=== PATIENT | male | born 1980 | race Caucasian/White ===

== ENCOUNTER 2020-12-13 18:43 | Observation (INO) | payer BC, SELFPAY ==
--- NOTE | ~2020-12-13 | CT_ITS ---
EXAMINATION: CT abdomen pelvis w con DATE: 12/13/2020 22:23 INDICATION: Abdominal pain. Nausea. TECHNIQUE: Computed tomography (CT) of the abdomen and pelvis was performed with 100 mL Omnipaque 350 intravenous contrast. Automated exposure control and iterative reconstruction technique were employe d. The dose-length product was 414.39 mGy-cm. COMPARISON: CT abdomen and pelvis 10/08/2018 FINDINGS: The visualized portions of the lung bases demonstrate mild atelectasis. No pleural effusion . The heart size is normal. No pericardial effusion. The liver, gallbladder, spleen, pancreas, adrena l glands, and kidneys are normal. There is liquid stool in colon suggestive of diarrhea. There are ch anges of ileocolic resection and anastomosis. There is extensive wall thickening of small bowel with a distal predominance. The bowel is normal in caliber. There are supraumbilical and infraumbilical ve ntral hernias containing fat. There are changes of infraumbilical ventral hernia repair centered to t he right of midline. There is a small volume of ascites. There is mild mesenteric lymphadenopathy. Th ere is mild lumbar spondylosis. IMPRESSION: 1. Worsened widespread small bowel wall thickening with a distal predominance, consistent with Crohn disease. 2. Small volume of ascites. 3. Ventral hernias containing fat. 4. Chronic mesenteric lymphadenopathy, likely reactive. Reviewed, dictated and finalized at location A. SIONAL BABYSITTER
--- NOTE | ~2020-12-13 | XR_ITS ---
UGI-AIR CONTRAST/SMALL BOWEL INDICATION: Abdominal pain. Crohn's disease. TECHNIQUE: Serial images of the upper GI tract structures and small bowel are performed following ora l administration of barium using double contrast technique. COMPARISON: CT dated 12/13/2020 FINDINGS: Barium flowed readily through the esophagus without evidence of hernia or reflux. Gastric contour, mucosa and motility are normal. The duodenal bulb fills and empties regularly and has a nor mal mucosal pattern. The duodenal sweep is in normal position. There are multiple segments of mid an d distal small bowel with mucosal thickening and irregularity and multiple areas of small bowel narro wing, consistent with Crohn's disease. No definite fistula is identified. Transit to the colon is les s than 1 hour 20 minutes. There are changes of ileocolic resection with anastomosis. IMPRESSION: 1: Multiple segments of abnormal mucosal thickening and irregularity with segmental narrowing of the mid and distal small bowel to the level of the ileocolic anastomosis. Findings compatible with known Crohn's disease. No definite obstruction or fistula identified. Reviewed, dictated and finalized at location A. THCARE ASSOCIATE IMPRESSION: 1: Multiple segments of abnormal mucosal thickening and irregularity with segme ntal narrowing of the mid and distal small bowel to the level of the ileocolic anastomosis. Findings compatible with known Crohn's disease. No definite obstru ction or fistula identified.
[2020-12-13 18:52] VITALS: BP 116/82; PULSE 120; RESP 14; TEMP 36.4; O2SAT 98
[2020-12-13 19:05] LABS: Basophils Absolute Auto 0.1 K/mm3 (0.0-0.1); Basophils Percent Auto 0.5 % (0.2-1.2); Eosinophils Absolute Auto 0.4 K/mm3 (0-0.3); Eosinophils Percent Auto 3.1 % (0-4.4); Hematocrit 48.9 % (42.0-52.0); Hemoglobin 16.8 g/dL (14.0-18.0); Immature Granulocyte Absolute 0.05 K/mm3 (0.00-0.031); Immature Granulocyte Percent A 0.4 % (0-0.5); Lymphocytes Percent Auto 23.9 % (18.3-44.2); Mean Corpuscular HGB Conc 34.4 g/dl (32-36); Mean Corpuscular Hemoglobin 29.9 pg (26-34); Mean Platelet Volume 9.2 fl (7.4-10.4); Monocytes Absolute Auto 1.2 K/mm3 (0.1-0.6); Monocytes Percent Auto 9.1 % (2.6-8.5); Neutrophils Absolute Auto 8.2 K/mm3 (1.3-6.7); Platelet Count Result 404 k/mm3 (150-375); Red Blood Count 5.62 M/mm3 (4.6-6.20); Red Cell Distribution Width 13.9 % (11.5-14.5)
[2020-12-13 19:14] LABS: Alanine Aminotransferase 33 U/L (4-50); Albumin Level 4.2 g/dL (3.5-5.1); Alkaline Phosphatase 102 U/L (38-126); Anion Gap 9 mmol/L (8-16); Aspartate Amino Transferase 24 U/L (17-59); Bilirubin,Total 0.5 mg/dL (0.2-1.3); Blood Urea Nitrogen 12 mg/dL (9-20); Calcium 9.6 mg/dL (8.4-10.2); Carbon Dioxide 25 mmol/L (22-30); Chloride 102 mmol/L (98-107); Estimated CRCL calculation 137 ml/min; Estimated Glomerular Filt Rate > 60; Glucose 107 mg/dL (65-110); Lipase 69 U/L (23-300); Potassium 3.5 mmol/L (3.4-5.0); Sodium 136 mmol/L (137-145)
[2020-12-13 21:54] VITALS: BP 119/87; PULSE 89; RESP 20; O2SAT 97
--- NOTE | 2020-12-13 22:10 | PC.NURSE ---
Patient taken to CT via stretcher.
--- NOTE | 2020-12-13 22:33 | ED.GENADULT ---
HPI - General Adult General Chief complaint: Abdominal Pain Stated complaint: chrohns Time Seen by Provider: 12/13/20 21:50 Source: patient and RN notes reviewed History of Present Illness HPI narrative: Patient is a 40 y/o male complaining of epigastric abdominal pain starting yesterday. He describes his pain as intermittent, sharp pain with no radiation. He rates his pain as 7/10. There is no pain radiation. He has no vomiting or diarrhea. 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 Related Data Allergies Allergy/AdvReac Type Severity Reaction Status Date / Time No Known Allergies Allergy Unverified 10/08/18 20:06 Review of Systems Constitutional: Constitutional: Denies chills, Denies fever(s), Denies headache(s) and Denies weakness Eyes: Eyes: Denies blurry vision ENT: Denies headache(s) and Denies neck pain Cardiovascular: Cardiovascular: Denies chest pain and Denies dyspnea Respiratory: Respiratory: Denies cough and Denies dyspnea Gastrointestinal: Gastrointestinal: Reports abdominal pain, Denies diarrhea, Denies nausea and Denies vomiting Genitourinary: Genitourinary: Denies hematuria and Denies dysuria Musculoskeletal: Musculoskeletal: Denies back pain and Denies neck pain Neurologic: Denies headache(s) and Denies weakness Exam Const: General: no acute distress and well developed Orientation/consciousness: oriented to person, oriented to place, oriented to time and patient oriented x3 HENMT: Head: normocephalic Ears: external ears normal General nose exam: Normal external nose present Eyes: General: appearance normal, both eyes and all related structures Conjunctivae: conjunctivae normal Neck: Neck: normal visual inspection and full ROM Chest: Chest palpation & inspection: normal inspection of the chest and no tenderness Resp: Effort & Inspection: normal respiratory effort Auscultation: clear to auscultation bilaterally Cardio: Rate: regular rate Rhythm: regular rhythm GI: GI Palp: Yes abdominal tenderness (epigastric), Yes Soft to palpation and Yes Hernia present Skin: General skin exam: normal color and turgor normal Neuro: General: oriented to person, oriented to place, oriented to time and patient oriented x3 Cognition (Neuro): normal cognition Extrem: General: normal to inspection, full ROM and no pedal edema Psych: Appearance: grossly normal Mental Status: mental status grossly normal Affect: normal affect Course Consultations Consultation #1: Discussed with Dr. Lundberg, who agrees to consult. Date: 12/13/20 Time: 23:16 Consultation #2: Discussed with Dr. Groves, who agrees to consult. Date: 12/13/20 Time: 23:25 Consultation #3: Discussed with Dr. Guzman, who agrees to admit. Date: 12/13/20 Time: 23:39 Vital Signs Vital signs: Vital Signs Temperature 36.4 C L 12/13/20 18:52 Pulse Rate 120 H 12/13/20 18:52 Respiratory Rate 14 12/13/20 18:52 Blood Pressure 116/82 12/13/20 18:52 Pulse Oximetry 98 12/13/20 18:52 Temperature 36.4 C L 12/13/20 18:52 Pulse Rate 89 12/13/20 21:54 Respiratory Rate 20 12/13/20 21:54 Blood Pressure 119/87 12/13/20 21:54 Pulse Oximetry 97 12/13/20 21:54 Medical Decision Making Vital Signs Vital Signs: Vital Signs Temperature 36.4 C L 12/13/20 18:52 Pulse Rate 120 H 12/13/20 18:52 Respiratory Rate 14 12/13/20 18:52 Blood Pressure 116/82 12/13/20 18:52 Pulse Oximetry 98 12/13/20 18:52 Temperature 36.4 C L 12/13/20 18:52 Pulse Rate 89 12/13/20 21:54 Respiratory Rate 20 12/13/20 21:54 Blood Pressure 119/87 12/13/20 21:54 Pulse Oximetry 97 12/13/20 21:54 Lab Data Result diagrams: 12/13/20 18:58 12/13/20 18:58 Labs: Lab Results 12/13/20 12/13/20 12/13/20 Range/Units 18:58 18:58 18:58 WBC 13.0 H (4.5-10.0) K/mm3 RBC
[2020-12-13 22:55] LABS: CRP 5.2 mg/dL (<1.0)
[2020-12-13] MEDS: methylPREDNISolone SOD SUCC 40 MG VIAL IV PUSH (23:08)
[2020-12-13] MEDS: DICYCLOMINE HCL INJ 20 MG/2 ML VIAL IM (23:08)
[2020-12-13 23:26] LABS: Add Urine Microscopic? YES; Appearance Urine Clear (Clear); Bilirubin Urine Negative (Negative); Blood Urine Negative (Negative); Color Urine Yellow (Yellow); Glucose Urine UA Negative (Negative); Ketones Urine 1+ mg/dL (Negative); Leukocyte Esterase Ur Negative LEU/UL (Negative); Mucus Urine Heavy /lpf; Nitrate Urine Negative (Negative); Protein Urine Negative (Negative); Urobilinogen Urine Negative mg/dL (<2.0); WBC Urine 0-3 /hpf
[2020-12-13 23:30] LABS: Specific Grav Ur 1.015 (1.001-1.035)
[2020-12-14] VITALS (10 sets, daily range): BP systolic 90–117; BP diastolic 51–77; PULSE 68–93; RESP 14–24; TEMP 36.1–36.7; O2SAT 92–96; BMI 22.4
[2020-12-14] LABS: Erythrocyte Sedimentation Rate 14 mm/hr (0-20)
--- NOTE | 2020-12-14 00:39 | ADMGEN ---
This patient, Bereket Youssef, was admitted to . Patient/family oriented to hospital policies and general routines including ID bracelet, bed and alarms, visiting hours, pain management, procedures, bathroom and other care routines, personal items, smoking policy, room service/diet, and visiting hours. Information on how to activate the Rapid Response Team has been discussed. Patient/Family are encouraged to report perceived risks to care and to ask questions if they do not understand what they are told or what they should do.
[2020-12-14] MEDS: SODIUM CHLORIDE 0.9% IV 1,000 ML 100 ML IV CONT (01:59)
--- NOTE | 2020-12-14 07:31 | PM.IMHP ---
H&P: HPI History of Present Illness Date/Time: 12/14/20 07:31 Chief Complaint: Crohn's Flare Narrative: Pt is a 40-year-old male with a past medical history of Crohn's and psoriasis who presented emergency room for abdominal pain. He states he started having epigastric abdominal pain on Monday which was intermittent. He describes this pain as a stabbing pain and was not associated with any food or activity. He did mention that laying down felt better and moving irritated his abdomen. He said it felt similar to his past Crohn's flares. He had no vomiting, diarrhea or constipation with this but did have some nausea. Today he has been doing much better and does not have any pain at this time. His last episode of pain was around midnight and he rates that at a 7/10 but that has gotten better. He has tolerated clear liquids so far. He denies vomiting, blood in his stool, chest pain, shortness of breath, fevers, chills, or wounds. He has been on Humira in the past but isn't taking any medications at this time. He currently does not see a GI doctor. He has a history bowel surgery many years ago in [place]. His last colonoscopy was in 2013. Review of Systems Review of Systems: All systems reviewed & are unremarkable except as noted in HPI and below PMFSH Past Medical History Medical History (Updated 12/14/20 @ 12:30 by Hawa Alvarez PA-C) Crohn's disease Psoriasis Surgical History Surgical History (Updated 12/14/20 @ 12:27 by Hawa Alvarez PA-C) History of abdominal surgery Due to bowel obstruction from Crohn's disease by Dr. Groves in [facility] History of hernia repair History of repair of ACL Right knee Family History Family History (Updated 12/14/20 @ 01:01 by Miranda Duff RN) Father Acute myocardial infarction Congestive heart failure Diabetes mellitus Hypertension Cancer Lymphoma Mother Cancer Uterine cancer Social History Social History (Updated 12/14/20 @ 12:28 by Hawa Alvarez PA-C) Social History: Patient currently smokes a pack a day. He does not drink alcohol or do marijuana. He works as a computer graphic artist. He would like to be a full code. If he is unable to make decisions for himself he would elect his , Holly, as his surrogate decision maker Smoking packs per day: 1 Smoking cigarettes per day: 20.0 Years smoked: 20 Smoking pack-years: 20.00 Smoking status: Current every day smoker Tobacco type: cigarettes Additional smoking assessment comments: smoking cessation encouraged Alcohol intake: never Substance use: never Substance use type: does not use Spiritual care concerns: No Meds Home Medications and Allergies Home Medications Medication Instructions Recorded Confirmed Type No Home Medications 12/14/20 12/14/20 History Allergies Allergy/AdvReac Type Severity Reaction Status Date / Time No Known Allergies Allergy Verified 12/14/20 01:08 Vital Signs Vital Signs - 24 hr 12/13/20 18:52 12/13/20 21:54 12/14/20 00:17 Temperature 97.5 F L 97.8 F Pulse Rate 120 H 89 81 Respiratory Rate 14 20 17 Blood Pressure 116/82 119/87 100/70 Pulse Oximetry 98 97 95 12/14/20 00:44 12/14/20 00:45 12/14/20 05:50 Temperature 97.8 F Pulse Rate 93 Respiratory Rate 14 Blood Pressure 104/77 110/74 Pulse Oximetry 96 96 12/14/20 05:51 12/14/20 06:00 Temperature 97.0 F L Pulse Rate 80 Respiratory Rate 18 Blood Pressure 110/74 90/57 L Pulse Oximetry 92 Exam Narrative: General:Well developed well nourished patient HEENT: Normocephalic, atraumatic, PERRL, Sclerae anicteric, oral mucosa moist. Neck: Supple Resp: CTA Heart: RRR with no murmurs Abd: Soft, non distended. No pain to palpation. Positive bowel sounds. Previous Surgical stars noted Skin: Warm and dry Extremities: No swelling, erythema or pain to palpation. Psoriasis noted to the left ankle Neuro: Alert and Orie
[2020-12-14] MEDS: methylPREDNISolone SOD SUCC 40 MG VIAL IV PUSH (08:32)
[2020-12-14] MEDS: metroNIDAZOLE 500 MG/ISO 100ML 500 MG/100 ML BAG 100 MG IVPB ×3 (08:32→21:23)
--- NOTE | 2020-12-14 08:46 | WPDGICN ---
Assessment and Plan Assessment and plan (1) Exacerbation of Crohn's disease: Qualifiers: Digestive disease complication type: unspecified complication Qualified Code(s): K50.919 - Crohn's disease, unspecified, with unspecified complications Code(s): K50.90 - Crohn's disease, unspecified, without complications Status: Acute Assessment and Plan: Patient currently on no medications for Crohn's disease. He has a history of ileal resection for Crohn's disease in the past. Has been on no recent medications. I would recommend that small-bowel follow-through be obtained to evaluate for small bowel stricture ring. A low residue diet may be of some benefit if this is okay. Changing from IV to oral tapering dose of steroids suggested. He may benefit from Pentasa which will be started if oral medications as tolerated. As an outpatient we may want to consider NT VO as an alternate biologic agent. (2) Abdominal wall hernia: Code(s): K43.9 - Ventral hernia without obstruction or gangrene Status: Acute GI Consult Note Consult date/time: 12/14/20 08:46 HPI: Bereket Youssef is a 40 year old male I am asked to see because of Crohn's disease. Patient initially diagnosed with Crohn's disease more than 10 years ago. Previously followed by Dr. Jade who iis now retired. Patient initially treated with Humira but failed to respond. He has been on no medications for more than 8 years. Admitted to our hospital with brief exacerbation 2 years ago. Patient apparently did well until Monday evening when he developed rather sharp intermittent pain in the upper abdomen. Upon presenting to [facility] was placed on IV steroids and feels much improved. Similar to previous presentation. Patient gives a history of ileocolonic resection many years ago. He temporary had an ileostomy that has subsequently been reversed. Review of Systems Review of Systems: All systems reviewed & are unremarkable except as noted in HPI and below [facility] Family History Family History (Updated 12/14/20 @ 01:01 by Miranda Duff RN) Father Acute myocardial infarction Congestive heart failure Diabetes mellitus Hypertension Cancer Lymphoma Mother Cancer Uterine cancer Social History Social History Smoking packs per day: 1 Smoking cigarettes per day: 20.0 Years smoked: 20 Smoking pack-years: 20.00 Smoking status: Current every day smoker Tobacco type: cigarettes Additional smoking assessment comments: smoking cessation encouraged Alcohol intake: never Substance use: never Substance use type: does not use Spiritual care concerns: No Meds Home Medications and Allergies Home Medications Medication Instructions Recorded Confirmed Type No Home Medications 12/14/20 12/14/20 History Allergies Allergy/AdvReac Type Severity Reaction Status Date / Time No Known Allergies Allergy Verified 12/14/20 01:08 Vital Signs Vital Signs - 24 hr 12/13/20 18:52 12/13/20 21:54 12/14/20 00:17 Temperature 97.5 F L 97.8 F Pulse Rate 120 H 89 81 Respiratory Rate 14 20 17 Blood Pressure 116/82 119/87 100/70 Pulse Oximetry 98 97 95 12/14/20 00:44 12/14/20 00:45 12/14/20 05:50 Temperature 97.8 F Pulse Rate 93 Respiratory Rate 14 Blood Pressure 104/77 110/74 Pulse Oximetry 96 96 12/14/20 05:51 12/14/20 06:00 Temperature 97.0 F L Pulse Rate 80 Respiratory Rate 18 Blood Pressure 110/74 90/57 L Pulse Oximetry 92 Exam Narrative: Physical exam reveals patient be alert. Vital signs stable. HEENT exam is unremarkable. Patient is anicteric. Lungs are clear to auscultation and percussion. Heart is without murmur or extra sounds. Abdominal exam bowel sounds present soft nontender with no organomegaly. Digital rectal exam unremarkable. Results Labs CBC & Chem 7: 12/13/20 18:58
[2020-12-14] MEDS: MESALAMINE 250 MG CAP CR 1000 MG PO ×4 (10:37→21:23)
[2020-12-15] MEDS: metroNIDAZOLE 500 MG/ISO 100ML 500 MG/100 ML BAG 100 MG IVPB (05:27)
[2020-12-15 06:00] VITALS: BP 108/63; PULSE 70; RESP 18; TEMP 36.1; O2SAT 98
[2020-12-15 06:36] LABS: Hemoglobin 13.1 g/dL (14.0-18.0); Mean Corpuscular HGB Conc 33.6 g/dl (32-36); Mean Corpuscular Hemoglobin 30.1 pg (26-34); Mean Corpuscular Volume 89.7 fl (80-100); Mean Platelet Volume 9.6 fl (7.4-10.4); Platelet Count Result 335 k/mm3 (150-375); Red Blood Count 4.35 M/mm3 (4.6-6.20); Red Cell Distribution Width 13.8 % (11.5-14.5); White Blood Count 13.5 K/mm3 (4.5-10.0)
[2020-12-15 06:53] LABS: Anion Gap 2 mmol/L (8-16); Blood Urea Nitrogen 11 mg/dL (9-20); CRP 1.1 mg/dL (<1.0); Calcium 8.7 mg/dL (8.4-10.2); Carbon Dioxide 29 mmol/L (22-30); Chloride 106 mmol/L (98-107); Estimated CRCL calculation 150 ml/min; Estimated Glomerular Filt Rate > 60; Glucose 99 mg/dL (65-110); Potassium 3.3 mmol/L (3.4-5.0); Sodium 137 mmol/L (137-145)
--- NOTE | 2020-12-15 07:11 | WPDGIPROGNO ---
Progress Note: A&P Assessment and Plan (1) Exacerbation of Crohn's disease: Qualifiers: Digestive disease complication type: unspecified complication Qualified Code(s): K50.919 - Crohn's disease, unspecified, with unspecified complications Code(s): K50.90 - Crohn's disease, unspecified, without complications Status: Acute Assessment and Plan: Patient admitted with exacerbation of Crohn's disease. Doing well on steroids at present. Small-bowel series reveals multiple small bowel strictures. Plan is for low residue diet. Would send home on prednisone with tapering doses by a 5-10 mg every week. Continue a 1 week course of Flagyl after discharge. Start Pentasa supplementation as well. Patient should follow-up in the GI office in 1-2 months to discuss Entyvio therapy. (2) Abdominal wall hernia: Code(s): K43.9 - Ventral hernia without obstruction or gangrene Status: Acute Assessment and Plan: Hernia peers stable at present observation encouraged at this time. Subjective Date/time seen: 12/15/20 07:11 Patient alert and comfortable this morning. No pain since midnight the night he was admitted. Tolerating low residue diet without pain. Review of Systems Review of Systems: All systems reviewed & are unremarkable except as noted in HPI and below Exam Narrative: Physical exam reveals patient be alert. Vital signs stable. HEENT exam reveals no icterus. Lungs are clear to auscultation and percussion. Heart is without murmur or extra sounds. Abdominal exam bowel sounds present soft nontender with no organomegaly. Objective Data Vital Signs Vital Signs: Vital Signs - 24 hr 12/14/20 14:00 12/14/20 20:00 12/14/20 22:00 Temperature 97.3 F L 98.0 F Pulse Rate 68 87 87 Respiratory Rate 24 H 18 18 Blood Pressure 117/65 115/51 L Pulse Oximetry 94 95 93 12/14/20 22:09 12/15/20 06:00 Temperature 97.0 F L Pulse Rate 70 Respiratory Rate 18 Blood Pressure 108/63 Pulse Oximetry 95 98 Intake/Output Intake/Output: Intake & Output 12/13/20 12/13/20 12/14/20 12/15/20 00:59 23:59 23:59 23:59 Intake Total 1634 750 Balance 1634 750 Meds/Results Medications: Active Medications Generic Name Dose Route Start Last Admin Trade Name Freq PRN Reason Stop Dose Admin Metronidazole 500 mg in 100 mls @ 100 mls/hr 12/14/20 07:30 12/15/20 05:27 Flagyl 500 Mg/Iso Soln 100 Ml IVPB 100 mls/hr Q8HR [facility] Administration Mesalamine 1,000 mg 12/14/20 09:00 12/14/20 21:23 Mesalamine 250 Mg Cap Cr PO 1,000 mg QID [facility] Administration Morphine Sulfate 2 mg 12/14/20 01:23 Morphine Sulfate (*Crx) 2 Mg/Ml Inj IV PUSH Q4H PRN Pain Rated 7-10 Ondansetron HCl 4 mg 12/14/20 01:23 Ondansetron Inj 4 Mg/2 Ml Vial IV PUSH Q6H PRN Nausea And Vomiting Prednisone 40 mg 12/15/20 08:00 Prednisone 20 Mg Tablet PO DAILY@0800 [facility] Radiology Results: ITS Impressions Abdomen/Pelvis CT 12/14/20 06:36 IMPRESSION: 1. Worsened widespread small bowel wall thickening with a distal predominance, consistent with Crohn disease. 2. Small volume of ascites. 3. Ventral hernias containing fat. 4. Chronic mesenteric lymphadenopathy, likely reactive. Upper GI and Small Bowel X-Ray 12/14/20 10:40 IMPRESSION: 1: Multiple segments of abnormal mucosal thickening and irregularity with segmental narrowing of the mid and distal small bowel to the level of the ileocolic anastomosis. Findings compatible with known Crohn's disease. No definite obstruction or fistula identified. Labs Labs: Laboratory Results - last 24 hr 12/15/20 12/15/20 06:01 06:01 WBC 13.5 H RBC 4.35 L Hgb 13.1 L D Hct 39.0 L MCV 89.7 MCH 30.1 MCHC 33.6 RDW 13.8 Plt Count 335 MPV 9.6 Sodium 137 Potassium 3.3 L Chloride 106 Carbon Dioxide 29 Anion Gap 2 L BUN 11 Creatinine 0.70 Estim Creat Clear Calc 150
[2020-12-15] MEDS: predniSONE 20 MG TABLET 40 MG PO (08:16)
[2020-12-15] MEDS: MESALAMINE 250 MG CAP CR 1000 MG PO ×2 (08:16→12:53)
[2020-12-15 10:38] LABS: Hematocrit 39.4 % (42.0-52.0); Hemoglobin 13.5 g/dL (14.0-18.0)
[2020-12-15 11:13] VITALS: O2SAT 96
[2020-12-15] MEDS: metroNIDAZOLE 250 MG TABLET 500 MG PO (12:54)
--- NOTE | 2020-12-15 13:31 | PM.DS ---
DS: Admitting Diagnosis Discharge Date 12/15/20 Admitting Diagnosis Crohn's exacerbation DS: Discharge Diagnosis Discharge Diagnosis (1) Exacerbation of Crohn's disease: Qualifiers: Digestive disease complication type: unspecified complication Qualified Code(s): K50.919 - Crohn's disease, unspecified, with unspecified complications Code(s): K50.90 - Crohn's disease, unspecified, without complications Status: Acute (2) Abdominal wall hernia: Code(s): K43.9 - Ventral hernia without obstruction or gangrene Status: Acute (3) Tobacco dependence: Code(s): F17.200 - Nicotine dependence, unspecified, uncomplicated Status: Acute DS: Summary Hospital Course Hospital Course: DOS 12/15/2020 Patient is a 40-year-old male with a past medical history of untreated Crohn's disease who presented emergency room on 12/13/2020 for sharp epigastric pain rated a 7/10 with no vomiting or diarrhea. Vitals in the ER were temperature 36.4? C, pulse 120, respiratory rate 14, blood pressure 116/82, pulse ox 98 on room air. Initial white blood cell count 13.0, hemoglobin 16.8, hematocrit 38.9, platelets 404. BMP relatively normal with exception of sodium 136. CT of the abdomen pelvis showed worsen widespread small bowel wall thickening with distal predominant consistent with Crohn's disease, ventral hernias containing fat, small volume ascites and chronic mesenteric lymphadenopathy likely reactive. Patient was started on IV steroids, Flagyl and mesalamine. He had almost immediate improvement of symptoms. He will underwent a small-bowel follow-through which showed multiple segments of wall thickening and narrowing of the mid and distal small bowel to the level of the ileocolonic anastomosis but no bowel obstruction. GI was consulted and recommended the above medications. He recommended a slow steroid taper, mesalamine, and Flagyl. The day of discharge the patient was tolerating a diet and feeling much better. Plan discussed with him and his and he is going to follow up with Dr. Lundberg. He was educated about the worrisome signs and symptoms to come back to emergency room for and was discharged in stable condition Status at Discharge Functional status at discharge: independent ambulation Overall status at discharge: patient is back to baseline Time Spent with Patient Time attestation: Total time spent providing and/or coordinating discharge services: 38 minutes Exam Narrative: General:Well developed well nourished patient HEENT: Normocephalic, atraumatic, PERRL, Sclerae anicteric, oral mucosa moist. Neck: Supple Resp: CTA Heart: RRR with no murmurs Abd: Soft, non distended. No pain to palpation. Positive bowel sounds. Previous Surgical stars noted Skin: Warm and dry Extremities: No swelling, erythema or pain to palpation. Psoriasis noted to the left ankle Neuro: Alert and Oriented x4 . CN 2-12 intact. No focal neurological deficits. DS: Data Data Completed and Pending Labs on day of discharge: Labs from last 24 hours 12/15/20 12/15/20 12/15/20 10:32 06:01 06:01 WBC 13.5 H RBC 4.35 L Hgb 13.5 L 13.1 L D Hct 39.4 L 39.0 L MCV 89.7 MCH 30.1 MCHC 33.6 RDW 13.8 Plt Count 335 MPV 9.6 Sodium 137 Potassium 3.3 L Chloride 106 Carbon Dioxide 29 Anion Gap 2 L BUN 11 Creatinine 0.70 Estim Creat Clear Calc 150 Estimated GFR > 60 Glucose 99 Calcium 8.7 C-Reactive Protein 1.1 Discharge Plan Discharge Attending physician on discharge: Ez Bray Consulting providers: Eva Groves ; Ihsan Lundberg Discharging Clinician: Hawa Alvarez Patient Disposition: Home, Self-Care Activity: as tolerated Diet: as tolerated Discharge Instructions: -please note your medications have changed. Do not drink alcohol on your antibiotics as it can have a reaction. -you will be on a prednisone taper for m
[2020-12-15] MEDS: POTASSIUM CHLORIDE 20 MEQ TABLET 40 MEQ PO (13:43)
== END 2020-12-15 14:05 | disposition home or self-care (01) ==
LOC: ANHED 12-14 00:06 → ANH3MEDSUR 12-14 00:45
PROVIDERS: Family Medicine; Physician Assistant; Admitting Provider Internal Medicine; Emergency Provider Emergency Medicine; PCP Physician Assistant; Visit Provider Internal Medicine
DX: K50.919 Crohn's disease, unspecified, with unspecified complications (principal); K43.9 Ventral hernia without obstruction or gangrene; L40.9 Psoriasis, unspecified; R10.13 Epigastric pain; F17.210 Nicotine dependence, cigarettes, uncomplicated
CPT/HCPCS: 36415; 74177; 74246; 74248; 80048; 80053; 81001; 83690; 85014; 85018; 85025; 85027; 85652; 86140; 96365; 96366; 96372; 96374; 96375; 96376; 99285; A9270; G0378; J0500; J2920; J7030; J7512; Q9967